=== PATIENT | male | born 1975 | race Caucasian/White ===

== ENCOUNTER 2017-06-12 16:42 | Emergency (ER) | payer BC ==
[~2017-06-12] VITALS: Ht 172.7 cm; Wt 100.2 kg
--- NOTE | ~2017-06-12 | EKG ---
PATIENT: KG GRANDE UNIT #: [id number] Ventricular Rate: 77 BPM Atrial Rate: 77 BPM P-R Interval: 146 ms QRS Duration: 82 ms Q-T Interval: 396 ms QTC Calculation(Bezet): 448 ms P [place]: 9 degrees Calculated R [place]: 26 degrees Calculated T [place]: 8 degrees Diagnosis Line: Normal sinus rhythm Diagnosis Line: Normal ECG Diagnosis Line: No previous ECGs available Diagnosis Line: Confirmed by MAKAYLA JULIO MD ([id number]) on Diagnosis Line: 06/14/2017 11:31:51 AM INTERPRETING MD: NORI SALAZAR
--- NOTE | ~2017-06-12 | CR72 ---
[facility] A Service of [facility] & [facility] RADIOLOGY TEXT RESULTS PATIENT: KG GRANDE LOCATION: [facility] : [birth year] UNIT #: [id number] AGE: [address]: Rinku Ortiz MD SEX: M ORDER DR: [id number] [facility] [address] [place], [place] [address] [id number] MR#: [id number] Acc #: [id number] NAME: KG GRANDE : 1975 SEX: M STUDY DATE/TIME: 06/12/2017 18:08 UNIT: [facility] ROOM: STUDY DESCRIPTION: CR Chest Single View Portable Attending Physician: Neda Son M.D. Ordering Physician: Neda Son M.D. Primary Care Physician: No Primary Care Physician MEDICAL IMAGING REPORT This report is preliminary unless electronic signature is present EXAM Portable chest. HISTORY Weakness, cough x4 days. COMPARISON 05/07/2016 FINDINGS A single AP portable view of the chest shows both lungs to be clear. The heart is normal in size. The mediastinal contour is normal. No significant bone abnormalities are seen. IMPRESSION Normal portable chest. Dictated by... Paulino Watkins M.D. THIS IS AN ELECTRONICALLY VERIFIED REPORT Paulino Watkins M.D. at 06/13/2017 2:34 PM TELLY/brien TD: 06/13/2017 08:38 JOB #: [id number] MEDICAL IMAGING REPORT Page 1 of 1 COPY
[2017-06-12 17:58] LABS: BASOPHIL# 0.1 X10e3 (0-0.3); BASOPHIL% 0.7 % (0-2.5); EOSINOPHIL# 0.5 X10e3 (0-0.7); EOSINOPHIL% 5.3 % (0.0-7.0); HEMATOCRIT 45.4 % (38.0-50.0); HEMOGLOBIN 15.7 gm/dL (13.0-16.0); LYMPHOCYTE# 2.1 X10e3 (1.0-3.5); LYMPHOCYTE% 23.8 % (17.0-45.0); MEAN CELL VOLUME 83.2 FL (83-96); MEAN CORPUSCULAR HEMOGLOBIN 28.7 PG (28-34); MEAN CORPUSCULAR HGB CONC 34.5 g/dL (30-36); MEAN PLATELET VOLUME 7.2 FL (6.5-11.5); MONOCYTE# 0.7 X10e3 (0-1.0); MONOCYTE% 8.5 % (3.0-12.0); NEUTROPHIL# 5.4 X10e3 (1.5-7.1); NEUTROPHIL% 61.7 % (40-75); PLATELET COUNT 292 X10e3 (140-420); RED BLOOD COUNT 5.46 X10e (3.90-5.60); RED CELL DISTRIBUTION WIDTH 13.7 % (11.0-15.5); WHITE BLOOD COUNT 8.8 X10e3 (4.0-10.5)
[2017-06-12 17:59] LABS: DIFF IND NO
[2017-06-12 18:25] LABS: ALBUMIN SERUM 4.1 g/dL (3.5-5.0); ALCOHOL BLOOD <5 mg/dL (0); ALKALINE PHOSPHATASE 76 U/L (32-92); ALT (SGPT) 26 U/L (10-40); AST (SGOT) 27 U/L (10-42); BILIRUBIN, DIRECT 0.2 mg/dL (0.0-0.2); BILIRUBIN,INDIRECT 0.7 mg/dL (0.0-0.9); BILIRUBIN,TOTAL 0.9 mg/dL (0.2-2.0); BLOOD UREA NITROGEN 9 mg/dL (9-23); CALCIUM SERUM 9.1 mg/dL (8.4-10.2); CARBON DIOXIDE 29 mmol/L (22-31); CHLORIDE 101 mmol/L (100-111); CREATININE SERUM 1.2 mg/dL (0.6-1.4); GLOM FILT RATE Estimated 73.1 mL/min (>60); GLUCOSE FASTING 102 mg/dL (70-110); POTASSIUM 4.2 mmol/L (3.5-5.1); PROTEIN TOTAL SERUM 7.5 g/dL (6.0-8.3); SODIUM 136 mmol/L (135-145)
[2017-06-12 18:45] LABS: PARTIAL THROMBOPLASTIN TIME 27.5 SECONDS (23.5-31.3)
[2017-06-12 19:56] LABS: URINE SOURCE CLEAN CATCH
[2017-06-12 20:09] LABS: URINE APPEARANCE CLEAR; URINE BILIRUBIN NEG (NEG); URINE BLOOD NEG (NEG); URINE COLOR YELLOW; URINE GLUCOSE NEG (NEG); URINE KETONE NEG (NEG); URINE LEUKOCYTE ESTERASE NEG (NEG); URINE NITRATE NEG (NEG); URINE PROTEIN NEG (NEG); URINE SPECIFIC GRAVITY 1.013 (1.003-1.035)
[2017-06-12 20:19] LABS: AMPHETAMINE NEG (NEG); BARBITURATES NEG (NEG); BENZODIAZEPINES NEG (NEG); COCAINE NEG (NEG); MARIJUANA NEG (NEG); OPIATES NEG (NEG); TRICYCLIC ANTIDEPRESSANTS NEG (NEG); U METHADONE NEG (NEG)
[2017-06-12 20:40] LABS: CULTURE INDICATED? NO
== END 2017-06-12 21:01 | disposition home or self-care (01) ==
LOC: CED 16:42
PROVIDERS: Emergency Medicine
DX: R53.83 Other fatigue (principal); R63.0 Anorexia; K21.9 Gastro-esophageal reflux disease without esophagitis
CPT/HCPCS: 36415; 71010; 80048; 80076; 80307; 81003; 82947; 83880; 84443; 85025; 85610; 85730; 93005; 99284; G0480